=== PATIENT | female | born 1965 ===

== ENCOUNTER 2021-03-13 08:38 | Outpatient (CLI) | payer OTHER ==
--- NOTE | 2021-03-14 15:13 | Mammography Report ---
BILATERAL DIGITAL SCREENING MAMMOGRAM 3D/2D: 03/13/2021 CLINICAL: Routine screening. Comparison is made to exams dated: 12/28/2018 mammogram, 09/19/2016 mammogram, 08/31/2015 mammogram, 06/25 mammogram, and 04/22/2013 mammogram - [facility]. The tissue of both breasts is heterogeneously dense. This may lower the sensitivity of mammography. No significant masses, calcifications, or other findings are seen in either breast. There has been no significant interval change. IMPRESSION: NEGATIVE There is no mammographic evidence of malignancy. A 1 year screening mammogram is recommended. This exam was interpreted at Station ID: [id number]. NOTE: For mammograms, a report in lay terms will be sent to the patient. Approximately 15% of breast malignancies will not be visualized mammographically. In the management of a palpable breast mass, a negative mammogram must not discourage biopsy of a clinically suspicious lesion. Electronically Signed By: Brennan dyer/daphne:03/13/2021 09:34:02 ACR BI-RADS Category 1: Negative 3341F PARENCHYMAL PATTERN: (D) - The breast(s) demonstrate(s) heterogeneously dense fibroglandular yeimi murillo. BI-RADS CATEGORY: (1) - 1 RECOMMENDATION: (ANNUAL) - Recommend routine annual screening mammography. [id number] 1 year screening LATERALITY: (B)
== END 2021-03-13 08:39 | disposition home or self-care (01) ==
LOC: DI 08:38
DX: Z12.31 Encounter for screening mammogram for malignant neoplasm of breast (principal)

== ENCOUNTER 2022-08-06 08:46 | Outpatient (CLI) | payer OTHER ==
[2022-08-06] MEDS ORDERED: GADOBUTROL 7.5 MMOL/7.5 ML VIAL ONE (09:19)
[2022-08-06] MEDS ORDERED: GADOBUTROL 7.5 MMOL/7.5 ML VIAL IVP ONE (17:24)
--- NOTE | 2022-08-06 22:46 | MRI Report ---
PROCEDURE: BRAIN W/WO INDICATIONS: Dizziness, headaches CONTRAST: 6.7ml gadavist TECHNIQUE: Noncontrast axial T1 spin echo, axial T2 fast spin echo, sagittal and axial FLAIR, coronal T2 fast sp in echo, axial gradient echo, axial diffusion and ADC through the brain. After the administration of contrast, axial and coronal T1 spin echo with fat saturation through the brain. COMPARISON: None. FINDINGS: Image quality: Excellent. CSF spaces: Basal cisterns are patent. No extra-axial fluid collections. Ventricles are normal in size and shape. Brain: No midline shift. No intracranial bleeds or masses. No abnormal intracranial enhancement. There is cerebral volume loss for age. There is periventricular white matter chronic small vessel is chemic change. The brainstem appears normal. Diffusion-weighted images demonstrate no acute ischemi c insults. No chronic ischemic insults. Normal intravascular flow voids are present. Skull and face: Calvarial marrow is normal in signal. Orbits appear normal. Sinuses: Sinuses and mastoids appear clear. IMPRESSION: No acute or otherwise significant intracranial finding. Mild age-commensurate global cer ebral volume loss and minimal chronic microvascular ischemic changes. Reviewed by: Rojelio Fong MD on 08/06/2022 10:45 PM PST Approved by: Rojelio Fong MD on 08/06/2022 10:45 PM PST Station ID: [id number]
== END 2022-08-06 08:47 | disposition home or self-care (01) ==
LOC: DI 08:46
PROVIDERS: ATTEND Student in an Organized Health Care Education/Training Program
DX: R42 Dizziness and giddiness (principal); R51.9 Headache, unspecified
CPT/HCPCS: 70553; A9585

== ENCOUNTER 2024-05-10 08:07 | Outpatient (CLI) | payer OTHER ==
--- NOTE | 2024-05-10 10:55 | Ultrasound Report ---
PROCEDURE: Pelvic w/Transvaginal INDICATIONS: PELVIC PAIN TECHNIQUE: Real-time scanning was performed of the pelvic organs, with image documentation. Additional endovagi nal scanning was necessary due to incomplete visualization of the adnexal and endometrial structures by transabdominal scanning. COMPARISON: None. FINDINGS: Uterus: Uterus is anteverted and normal in size at 5.2 x 3.4 x 3.7 cm. The myometrium is homogeneou s. The endometrium measures 4 mm in combined thickness. Ovaries: The right ovary measures 1.8 x 0.8 x 1.0 cm, with a calculated ovarian volume of 1 cc. The left ovary measures 3.0 x 3.3 x 2.2 cm, with a calculated ovarian volume of 11 cc. The ovaries have a normal sonographic appearance. Less than 12 follicles can be seen in each ovary. No adnexal mass es are seen. Left ovarian cystic lesion which is anechoic, without papillary projections or septation s. This measures 2.2 x 2.5 x 1.7 cm. Other: No pathologic free abdominal or pelvic fluid. IMPRESSION: O-RADS 2 left ovarian cystic lesion. Consider yearly follow-up. Reviewed by: Julio Crawford MD on 05/10/2024 10:54 AM PDT Approved by: Julio Crawford MD on 05/10/2024 10:54 AM PDT Station ID: [id number]
--- NOTE | 2024-05-10 13:37 | Ultrasound Report ---
PROCEDURE: Abdomen Complete INDICATIONS: UPPER ABDOMEN CARMITA TECHNIQUE: Real-time scanning was performed of the abdominal and retroperitoneal organs, with image documentatio n. COMPARISON: None. FINDINGS: Liver: Liver is normal in size and heterogenous in echotexture. Gallbladder: No gallstones, sludge, wall thickening or pericholecystic edema. Biliary ducts: Intrahepatic bile ducts are non-dilated. Extrahepatic bile duct caliber measures 4 m m. Normal is 6-7 mm or less in diameter, or 10 mm or less post-cholecystectomy. Pancreas: Visualized portions of the pancreas are sonographically normal. Spleen: Spleen is normal in size. Limited evaluation due to shadowing from ribs. Kidneys: Kidneys are normal in size and echotexture. Right kidney measures 9.9 cm long; left kidney measures 10.7 cm long. Mild bilateral hydronephrosis without obstructive urolithiasis. No solid mas ses. No complex renal cystic lesions which require follow-up. Aorta: Visualized aorta is normal in caliber at less than 3 cm. Iliacs: Proximal common iliac arteries are normal in caliber at less than 2.5 cm. IVC: Intrahepatic inferior vena cava is patent. Miscellaneous: No free abdominal fluid. IMPRESSION: 1.Mild bilateral hydronephrosis without obstructive calculi at the visualized ureteropelvic junctions . Follow-up options would include a CT urogram with contrast to evaluate for a distal obstruction. 2.No other sonographic abnormality of the abdomen. Reviewed by: Dwaine Sandoval MD on 05/10/2024 1:36 PM PDT Approved by: Dwaine Sandoval MD on 05/10/2024 1:36 PM PDT Station ID: [id number]
== END 2024-05-10 08:08 | disposition home or self-care (01) ==
LOC: DI 08:07
PROVIDERS: ATTEND Nurse Practitioner Family
DX: N83.202 Unspecified ovarian cyst, left side (principal); N13.30 Unspecified hydronephrosis